=== PATIENT | male | born 1955 | race Two or more races ===

== ENCOUNTER 2023-09-19 20:00 | Emergency (ER) | payer OTHER, BC ==
[~2023-09-19] VITALS: Ht 190.5 cm; Wt 108.9 kg
[2023-09-19] MEDS ORDERED: TENORMIN50 M1 (20:11)
[2023-09-19] MEDS ORDERED: VAZALORE81 MG PO (20:11)
[2023-09-19] MEDS ORDERED: PRAVASTATIN SOD40 MG PO (20:12)
[2023-09-19] MEDS ORDERED: TRAMADOL HCL 50 MG TABLET PO STA (22:33)
[2023-09-19 23:28] LABS: HEMATOCRIT 38.9 % (39.0-48.0); HEMOGLOBIN 13.8 g/dL (13-16.00); MEAN CELL VOLUME 94.2 fL (80.0-100.00); MEAN CORPUSCULAR HEMOGLOBIN 33.4 pg (27.00-32.0); MEAN CORPUSCULAR HGB CONC 35.5 g/dl (32.0-36.0); PLATELET COUNT 172 K/uL (150-450); RED BLOOD COUNT 4.13 M/uL (4.00-6.00)
[2023-09-19 23:49] LABS: CALCIUM 9.4 mg/dL (8.5-10.1); CREATININE SERUM 1.27 mg/dL (0.70-1.30); D DIMER 0.6 MG/L; GFR 56.56; PARTIAL THROMBOPLASTIN TIME 26.2 SECONDS (22.0-34.0); POTASSIUM 4.93 mEq/L (3.5-5.1)
[2023-09-19 23:52] LABS: INR 1.04; PROTHROMBIN TIME 10.9 SECONDS (9.0-11.5)
== END 2023-09-20 15:31 | disposition home or self-care (01) ==
LOC: ER 20:01
PROVIDERS: General Practice
DX: S89.81XA Other specified injuries of right lower leg, initial encounter (principal); X58.XXXA Exposure to other specified factors, initial encounter; Y93.89 Activity, other specified; Y92.89 Other specified places as the place of occurrence of the external cause; Y99.8 Other external cause status; M79.89 Other specified soft tissue disorders